=== PATIENT | female | born 1985 | race Asian ===

== ENCOUNTER 2019-02-03 17:51 | Inpatient (IN) ==
[2019-02-03] MEDS ORDERED: LACTATED RINGER'S 1,000 ML IV PRN (18:31)
[2019-02-03] MEDS ORDERED: OXYTOCIN 30 UNITS/500 ML BAG IV PRN (18:31)
[2019-02-03 19:27] LABS: Hematocrit (blood only) 35.1 % (37-47); Hemoglobin 11.8 g/dL (12.0-16.0); Mean Corpuscular Volume 81.6 fL (80-100); Mean Platelet Volume 12.2 fL (7.4-10.4); Platelet Count 141 K/uL (130-400); RDW Coefficient of Variation 14.8 % (11.5-14.5); RDW Standard Deviation 43.7 fL (36.4-46.3); White Blood Count 7.83 K/uL (4.8-10.8)
[2019-02-03] MEDS ORDERED: DIPHTHERIA/TETANUS/PERTUSSIS 0.5 ML SYR/VIAL IM ONE (19:42)
[2019-02-03] MEDS ORDERED: HYDROCORTISONE ACETATE 25 MG SUPP PR PRN (19:42)
[2019-02-03] MEDS ORDERED: BENZOCAINE 20% AER SPR 82.5 GM CAN EXT PRN (19:42)
[2019-02-03] MEDS ORDERED: ACETAMINOPHEN 325 MG TAB PO PRN (19:42)
[2019-02-03] MEDS ORDERED: SUPERCREAM 0.870% 15 GM JAR EXT PRN (19:42)
[2019-02-03] MEDS ORDERED: OXYCODONE/ACETAMINOPHEN 5mg/325mg TAB PO PRN (19:42)
[2019-02-03] MEDS ORDERED: IBUPROFEN 600 MG TAB PO PRN (19:42)
[2019-02-03 19:50] LABS: Mean Corpuscular Hgb Conc 33.6 g/dL (32-36)
[2019-02-03] MEDS: DOCUSATE SODIUM 100 MG CAP PO SCH (21:10)
--- NOTE | 2019-02-03 23:24 | Delivery Summary ---
DATE OF OPERATION: 02/03/2019 PREOPERATIVE DIAGNOSES: 1. Rees intrauterine at 39 weeks 1 day 1. 2. Spontaneous labor. 3. Spontaneous rupture of membranes. 4. Group B Strep negative. POSTOPERATIVE DIAGNOSES: 1. Rees intrauterine at 39 weeks 1 day 1. 2. Spontaneous labor. 3. Spontaneous rupture of membranes. 4. Group B Strep negative. PROCEDURE: The patient arrived on labor and delivery 8 cm dilated shortly after she was checked and while she was still being admitted, her water spontaneously broke and the patient almost immediately began to feel an urge to push. I was called back to the room, where I had stepped out to write her admission orders and at that point, the patient was uncontrollably pushing. She was quickly prepped for delivery and then delivered the head of her in an occiput anterior position followed quickly by the shoulders and the remainder of the with no difficulty. The cord was doubly clamped and cut. The was taken to the warmer and the placenta delivered spontaneously and intact with a 3-vessel cord. 10 mL of 1% plain lidocaine was infiltrated through a second degree perineal laceration which was then repaired with 2-0 Vicryl in the usual manner with a crown suture to rebuild the perineal body. Lochia was minimal and the patient and her infant were in stable condition at the time I left the delivery room. I attest to the content of the Intraoperative Record and any orders documented therein. Any exception s are noted below.
--- NOTE | 2019-02-04 06:35 | Obstetrical Progress Note ---
Date of Service <Rome Londono MD - Last Filed: 02/04/19 06:35> February 04, 2019 Assessment & Plan <Rome Londono MD - Last Filed: 02/04/19 06:35> (1) Vaginal delivery: Tom Foley is a 31yo who is now s/p at 39+1 now PPD#1 - GBS negative, diet controlled gDM, Blood type B+ - Feels well today. Eating well, voiding well, ambulating well. - Pain well controlled with ibuprofen 600mg Q4H PRN. - Routine care - After discharge will have [address] Hebert. Subjective <Rmoe Londono MD - Last Filed: 02/04/19 06:35> Ambulation: ambulating normally Voiding: no voiding problems Passing Gas:: Yes Diet Tolerance:: regular diet Lochia:: Small Feeding Type:: breast feeding Current Pain Level(1-10): 1 Review of Systems Denies fever, chills, sweats Denies shortness of breath, difficulty breathing, chest pain, palpitations, chest pressure. Denies breast pain. Denies dysuria. Denies headache. Physical Exam <Rome Londono MD - Last Filed: 02/04/19 06:35> Vital Signs (Past 24 Hours) Last Vital Signs Temp 36.6 C 02/04/19 04:35 Pulse 80 02/04/19 04:35 Resp 18 02/04/19 04:35 BP 97/64 L 02/04/19 04:35 Pulse Ox 98 02/04/19 04:35 General: Alert, oriented. No acute distress. Cardiac: Regular rate and rhythm, no murmurs/rubs/gallops. Respiratory: Clear to auscultation anterior and posteriorly, no wheezes/rales/rhonchi. No increased work of breathing. Symmetrical chest rise. No respiratory distress. Abdomen: Soft, nontender, nondistended. Bowel sounds present. Uterus: Uterine fundus firm, palpable at umbilicus. Lower Extremities: No lower extremity edema or swelling. No deep calf pain. Shayy's negative bilaterally. <Pina Hebert MD - Last Filed: 02/04/19 07:27> Co-Signing Physician Notes I have reviewed the resident's note and examined the patient myself, and agree with the note above. Resident Activity Tracking <Rome Londono MD - Last Filed: 02/04/19 06:35> Resident Involvement: Resident Care Provided Care Provided: Adult Hospital Medicine
[2019-02-04 07:24] LABS: Hematocrit (blood only) 30.1 % (37-47); Hemoglobin 10.1 g/dL (12.0-16.0); Mean Corpuscular Hgb Conc 33.6 g/dL (32-36); Mean Corpuscular Volume 81.4 fL (80-100); Mean Platelet Volume 10.9 fL (7.4-10.4); Platelet Count 135 K/uL (130-400); RDW Coefficient of Variation 14.8 % (11.5-14.5); White Blood Count 10.26 K/uL (4.8-10.8)
[2019-02-04] MEDS: DOCUSATE SODIUM 100 MG CAP PO SCH (08:09)
[2019-02-04] MEDS ORDERED: PRENATAL VITAMIN 1 TAB PO SCH (09:00)
== END 2019-02-04 20:28 | disposition home or self-care (01) | DRG 807 ==
LOC: OPB 17:51 → 4S1 17:52 → 4S2 21:35